=== PATIENT | female | born 1990 | race Caucasian/White ===

== ENCOUNTER 2021-03-30 11:43 | Emergency (ER) | payer MEDICAID ==
[~2021-03-30] VITALS: Ht 165.1 cm; Wt 68.0 kg
[2021-03-30] MEDS ORDERED: ACETAMINOPHEN 325MG TABLET PO ONE (12:30)
[2021-03-30] MEDS ORDERED: ACET-2708 MT (14:42)
[2021-03-30] MEDS ORDERED: NAPR-1176 MT (14:42)
[2021-03-30 14:54] VITALS: BP 133/74
== END 2021-03-30 14:59 | disposition home or self-care (01) ==
LOC: ER 11:43
DX: J06.9 Acute upper respiratory infection, unspecified (principal); Z20.822 Contact with and (suspected) exposure to COVID-19; R03.0 Elevated blood-pressure reading, without diagnosis of hypertension
CPT/HCPCS: 71045; 81025; 99284; C9803; U0003; U0005